=== PATIENT | female | born 1955 | race Caucasian/White ===

== ENCOUNTER 2019-11-20 12:21 | Emergency (ER) | payer BC, MEDICARE ==
[2019-11-20] MEDS ORDERED: DIPH/PERTUSS(ACELL)/TETANUS VAC/PF 0.5 ML SYR (>=10YO) IM ONE (12:38)
--- NOTE | 2019-11-20 12:40 | ER Document Report ---
ED Medical Screen (RME) - General Chief Complaint: Head Injury Stated Complaint: FALL/HEAD PAIN Time Seen by Provider: 11/20/19 12:36 Notes: HPI: 64-year-old female who is not on blood thinners presenting for evaluation of head injury today. Patient tripped and fell forward striking the frontal portion of her head and forehead on a deck. Does complain of headache. Denies weakness numbness tingling in the extremities. States tetanus is not up-to-date. I have greeted and performed a rapid initial assessment of this patient. A comprehensive ED assessment and evaluation of the patient, analysis of test results and completion of the medical decision making process will be conducted by additional ED providers PHYSICAL EXAMINATION: There is an 8 cm laceration extending from the right upper forehead into the hairline with tenderness on palpation. No direct cervical spine tenderness on palpation but mild discomfort with range of motion of the head and neck. Answers all questions appropriately TRAVEL OUTSIDE OF THE [place] IN LAST 30 DAYS: No - Related Data Allergies/Adverse Reactions: Penicillins Allergy (Intermediate, Verified 11/20/19 12:25) Past Medical History - Social History Chew tobacco use (# tins/day): No Frequency of alcohol use: Occasional Drug Abuse: Marijuana - Immunizations Hx Diphtheria, Pertussis, Tetanus Vaccination: Yes Physical Exam - Vital signs Vitals: Temp Pulse Resp BP Pulse Ox 98.4 F 94 20 152/72 H 94 11/20/19 12:24 11/20/19 12:24 11/20/19 12:24 11/20/19 12:24 11/20/19 12:24 Course - Vital Signs Vital signs: Temp Pulse Resp BP Pulse Ox 98.4 F 94 20 152/72 H 94 11/20/19 12:24 11/20/19 12:24 11/20/19 12:24 11/20/19 12:24 11/20/19 12:24
--- NOTE | 2019-11-20 13:18 | RADIOLOGY REPORT (SQ) ---
EXAM DESCRIPTION: CT HEAD WITHOUT IMAGES COMPLETED DATE/TIME: 11/20/2019 12:53 pm REASON FOR STUDY: fall trauma COMPARISON: None. TECHNIQUE: Axial images acquired through the brain without intravenous contrast. Images reviewed wi th bone, brain and subdural windows. Additional sagittal and coronal reconstructions were generated. Images stored on PACS. All CT scanners at this facility use dose modulation, iterative reconstruction, and/or weight based d osing when appropriate to reduce radiation dose to as low as reasonably achievable (ALARA). [facility]: Dose Right [facility]: CareDose [facility]: Dose Right [facility]: Teradose 4D [facility]: Smart [employer] RADIATION DOSE: CT Rad equipment meets quality standard of care and radiation dose reduction techniq ues were employed. CTDIvol: 53.2 mGy. DLP: 964 mGy-cm. mGy. LIMITATIONS: None. FINDINGS: VENTRICLES: Prominent. CEREBRUM: There is a focal area of hemorrhage in the right parietal lobe. There is subtle decreased attenuation around knee hemorrhage in this could be edema. Hemorrhage into a metastatic focus cannot be excluded. This could be posttraumatic from the patient's recent fall. Mild small-vessel ischemi c changes. CEREBELLUM: No masses. No hemorrhage. No alteration of density. No evidence for acute infarction. EXTRAAXIAL SPACES: Mild age-related involutional change. No fluid collections. No masses. ORBITS AND GLOBE: No intra- or extraconal masses. Normal contour of globe without masses. CALVARIUM: No fracture. PARANASAL SINUSES: Fairly extensive ethmoid, right and left maxillary as well as sphenoid sinusitis. SOFT TISSUES: No mass or hematoma. OTHER: No other significant finding. IMPRESSION: Focal parenchymal hemorrhage in the right parietal lobe most likely posttraumatic. Mild small-vessel ischemic changes. And latter the patient states 3 hemorrhage into a metastatic focus c annot be entirely excluded. EVIDENCE OF ACUTE STROKE: NO. COMMENT: Pertinent findings on the imaging study reported as a CRITICAL RESULT to Dr. Pedroza at13:12 on 11/20/2019. Category of Critical Result: Intracranial hemorrhage TECHNICAL DOCUMENTATION: JOB ID: [id number] Quality ID # [id number]: Final reports with documentation of one or more dose reduction techniques (e.g., Au tomated exposure control, adjustment of the mA and/or kV according to patient size, use of iterative reconstruction technique) 2010 [employer]- All Rights Reserved Reading location - IP/workstation name: [email or web address]
--- NOTE | 2019-11-20 13:23 | RADIOLOGY REPORT (SQ) ---
EXAM DESCRIPTION: CT CERVICAL SPINE WITHOUT IMAGES COMPLETED DATE/TIME: 11/20/2019 12:53 pm REASON FOR STUDY: trauma COMPARISON: CT brain 11/20/2019 TECHNIQUE: Axial images acquired through the cervical spine without intravenous contrast. Images re viewed with lung, soft tissue and bone windows. Reconstructed coronal and sagittal MPR images review ed. Images stored on PACS. All CT scanners at this facility use dose modulation, iterative reconstruction, and/or weight based d osing when appropriate to reduce radiation dose to as low as reasonably achievable (ALARA). [facility]: Dose Right [facility]: CareDose [facility]: Dose Right [facility]: Teradose 4D [facility]: Smart [employer] RADIATION DOSE: CT Rad equipment meets quality standard of care and radiation dose reduction techniq ues were employed. CTDIvol: 21.5 mGy. DLP: 450 mGy-cm. mGy. LIMITATIONS: None. FINDINGS: ALIGNMENT: Anatomic. MINERALIZATION: Normal. VERTEBRAL BODIES: No fractures or dislocation. DISCS: Mild posterior disc bulging at C5-6 with moderate right and mild left foraminal narrowing. No central stenosis. FACETS, LATERAL MASSES, POSTERIOR ELEMENTS: No fractures. No dislocation. No acute findings. HARDWARE: None in the spine. Left subclavian central line. VISUALIZED RIBS: No fractures. LUNG APICES AND SOFT TISSUES: No significant or acute findings. OTHER: No other significant finding. IMPRESSION: NO ACUTE OR SIGNIFICANT FINDINGS IN THE CERVICAL SPINE. TECHNICAL DOCUMENTATION: JOB ID: [id number] Quality ID # [id number]: Final reports with documentation of one or more dose reduction techniques (e.g., Au tomated exposure control, adjustment of the mA and/or kV according to patient size, use of iterative reconstruction technique) 2010 [employer]- All Rights Reserved Reading location - IP/workstation name: [email or web address]
--- NOTE | 2019-11-20 13:29 | ER Document Report ---
Entered by SWEETIE NETTLES SCRIBE 11/20/19 1317 Acting as scribe for:PATRICIA MARQUEZ MD ED Fall - General Chief Complaint: Head Injury Stated Complaint: FALL/HEAD PAIN Time Seen by Provider: 11/20/19 12:36 Primary Care Provider: WILVER GILL PA-C [Primary Care Provider] - Follow up as needed Mode of Arrival: Ambulatory Information source: Patient Notes: This 64 year old female patient with stage IV lung cancer with brain metastasis presents to the emergency department today with complaints of a fall that occurred prior to arrival. Patient states she tripped and lost her balance, falling forward and hitting her head on a wooden deck. Patient has a gaping 8 cm lacerations to the left anterior portion of the scalp. TRAVEL OUTSIDE OF THE [place] IN LAST 30 DAYS: No - Related data Allergies/Adverse Reactions: Penicillins Allergy (Intermediate, Verified 11/20/19 12:25) Past Medical History - General Information source: Patient - Social History Smoking Status: Former Smoker - quit in 2018 Cigarette use (# per day): No Chew tobacco use (# tins/day): No Frequency of alcohol use: Occasional Drug Abuse: Marijuana Lives with: Family Family History: Reviewed & Not Pertinent Patient has suicidal ideation: No Patient has homicidal ideation: No Malignancy Medical History: Reports: Hx Lung Cancer - Stage IV with brain metastasis - Immunizations Hx Diphtheria, Pertussis, Tetanus Vaccination: Yes Review of Systems - Review of Systems Constitutional: See HPI, Other - fall, head lac EENT: No symptoms reported Cardiovascular: No symptoms reported Respiratory: No symptoms reported Gastrointestinal: No symptoms reported Genitourinary: No symptoms reported Female Genitourinary: No symptoms reported Musculoskeletal: No symptoms reported Skin: No symptoms reported Hematologic/Lymphatic: No symptoms reported Neurological/Psychological: No symptoms reported -: Yes All other systems reviewed and negative Physical Exam - Vital signs Vitals: Temp Pulse Resp BP Pulse Ox 98.4 F 94 20 152/72 H 94 11/20/19 12:24 11/20/19 12:24 11/20/19 12:24 11/20/19 12:24 11/20/19 12:24 - Notes Notes: Physical Exam: General: Alert, non-toxic appearing. HEENT: Normocephalic. PERRL. Extraocular movements intact. Oropharynx clear. S ee skin exam. Neck: Supple. Non-tender. Respiratory: No respiratory distress. Wheezing and rhonchi bilaterally. Cardiovascular: Regular rate and rhythm. Abdominal: Normal Inspection. Non-tender. No distension. Normal Bowel Sounds. Back: No gross abnormalities. Extremities: Moves all four extremities. Upper extremities: Normal inspection. Normal ROM. Lower extremities: Normal inspection. No edema. Normal ROM. Neurological: Normal cognition. AAOx4. Normal speech. Psychological: Normal affect. Normal Mood. Skin: 8cm laceration to the frontal scalp starting just left of the midline extending 2 cm past the hairline to the midline on the forehead. Galea laceration with bone exposed is seen in the wound. The soft tissue surrounding laceration are quite edematous. Course - Re-evaluation Re-evalutation: 11/20/19 15:38 PROCEDURE: Wound Closure There is no gross contamination of the skin or wound. The tissues along the wound edges and the forehead aspect are edematous. The 8 cm scalp wound was prepped with Shur-Clens. The skin was anesthetized with 10 mL's of 1% lidocaine with epi local. The hair was trimmed back from the wound edges. The wound was copiously irrigated with 100 mL's of normal saline. No foreign debris other than some of the patient's hair was found in the wound. This area was meticulously removed prior to the final irrigations. There was about a 5 cm laceration in the galea with no depression in the calvarium. The skin was closed with a sixteen 4-0 nylon simple sutures. One small area in the distal aspect of the forehead wound had a Steri-Strip placed on it due to a small skin flap that looked like it would be more likely preserved with a Steri-Strip rather than running a suture through it. - Vital Signs Vital signs: Temp Pulse Resp BP Pulse Ox 98.4 F 94 20 152/72 H 94 11/20/19 12:24 11/20/19 12:24 11/20/19 12:24 11/20/19 12:24 11/20/19 12:24 - Laboratory Result Diagrams: 11/20/19 14:07 11/20/19 14:07 Laboratory results interpreted by me: 11/20/19 11/20/19 14:07 14:07 RBC 2.90 L Hgb 10.0 L Hct 28.2 L MCH 34.4 H Plt Count 85 L Lymph % (Auto) 12.5 L Sodium 135.6 L Alkaline Phosphatase 140 H - Diagnostic Test Radiology reviewed: Image reviewed, Reports reviewed - CT scan of the head shows focal parenchymal hemorrhage in the right parietal lobe, most likely posttraumatic. There is a possibility it could be hemorrhage into a metastatic focus. Fairly extensive ethmoid, right and left maxillary as well as sphenoid sinusitis. CT scan cervical spine shows mild posterior disc bulging at C5-6 with moderate right and mild left foraminal narrowing. No central stenosis. No acute or significant findings. - Consults [facility] Time consulted: 15:25 Consulted provider: other - Dr. Her - Transfer of Care Care transferred to following provider: Dr. Tripathi Notes: 11/20/19 16:30 Patient is pending transfer to [facility] trauma service. Discharge - Discharge Clinical Impression: Scalp laceration Qualifiers: Encounter type: initial encounter Qualified Code(s): S01.01XA - Laceration without foreign body of scalp, initial encounter Traumatic cerebral parenchymal hemorrhage Qualifiers: Encounter type: initial encounter Laterality: right Loss of consciousness presence/duration: without LOC Qualified Code(s): S06.2X0A - Diffuse traumatic brain injury without loss of consciousness, initial encounter Condition: Stable Disposition: [facility] Referrals: WILVER GILL PA-C [Primary Care Provider] - Follow up as needed I personally performed the services described in the documentation, reviewed and edited the documentation which was dictated to the scribe in my presence, and it accurately records my words and actions.
[2019-11-20] MEDS ORDERED: LIDOCAINE 1%/EPINEPHRINE INJ 20 ML VIAL INJ ONE (13:30)
[2019-11-20 14:30] LABS: INTERNATIONAL RATION (INR) 0.94; PROTHROMBIN TIME 12.6 SEC (11.4-15.4)
[2019-11-20 14:34] LABS: HEMATOCRIT 28.2 % (36.0-47.0); MEAN CORPUSCULAR HEMOGLOBIN 34.4 pg (27.0-33.4); MEAN CORPUSCULAR HGB CONC 35.4 g/dL (32.0-36.0); MEAN CORPUSCULAR VOLUME 97 fl (80-97); RED CELL DISTRIBUTION WIDTH 12.6 % (11.5-14.0); WHITE BLOOD COUNT 4.7 10^3/uL (4.0-10.5)
[2019-11-20 14:48] LABS: ALBUMIN 3.8 g/dL (3.5-5.0); ALKALINE PHOSPHATASE 140 U/L (38-126); ANION GAP 6 (5-19); ASPARTATE AMINO TRANSFERASE 25 U/L (14-36); BILIRUBIN,TOTAL 0.2 mg/dL (0.2-1.3); BLOOD UREA NITROGEN 13 mg/dL (7-20); CALCIUM 9.2 mg/dL (8.4-10.2); CARBON DIOXIDE 29 mmol/L (22-30); CHLORIDE 101 mmol/L (98-107); GLUCOSE 101 mg/dL (75-110); POTASSIUM 4.2 mmol/L (3.6-5.0); TOTAL PROTEIN 7.2 g/dL (6.3-8.2)
[2019-11-20 15:02] LABS: PLATELET COUNT 85 10^3/uL (150-450)
[2019-11-20] MEDS ORDERED: CEFAZOLIN 1 GM/D5W RTU 1 GM/50 ML RTUPB IV ONE (15:50)
[2019-11-20 16:49] VITALS: BP 135/63
[2019-11-21 10:31] LABS: ABSOLUTE LYMPHOCYTES# (MANUAL) 0.8 10^3/uL (0.5-4.7); ABSOLUTE MONOCYTES # (MANUAL) 0.6 10^3/uL (0.1-1.4); BAND NEUTROPHILS % (MANUAL) 1 % (3-5); BASOPHILS % (MANUAL) 1 % (0-2); EOSINOPHILS % (MANUAL) 2 % (0-6); LYMPHOCYTES % (MANUAL) 17 % (13-45); MONOCYTES % (MANUAL) 12 % (3-13); SEGMENTED NEUTROPHILS % (MAN) 67 % (42-78); TOTAL CELLS COUNTED 100
[2019-11-21 10:32] LABS: TOXIC VACUOLATION PRESENT
[2019-11-21 10:35] LABS: PLATELET COMMENT DECREASED; PLATELET LARGE PRESENT
== END 2019-11-20 17:53 | disposition short-term general hospital (02) ==
LOC: ER 12:21
DX: S06.2X0A Diffuse traumatic brain injury without loss of consciousness, initial encounter (principal); S01.01XA Laceration without foreign body of scalp, initial encounter; W19.XXXA Unspecified fall, initial encounter; M50.822 Other cervical disc disorders at C5-C6 level; J32.2 Chronic ethmoidal sinusitis; J32.0 Chronic maxillary sinusitis; J32.3 Chronic sphenoidal sinusitis; C34.90 Malignant neoplasm of unspecified part of unspecified bronchus or lung; C79.31 Secondary malignant neoplasm of brain; F12.10 Cannabis abuse, uncomplicated; Z23 Encounter for immunization; Z87.891 Personal history of nicotine dependence; Z88.0 Allergy status to penicillin
CPT/HCPCS: 99284; 90471; 96365; 36415; 85025; 85610; 80053; 70450; 72125; 90715; 12004; J0690; J3490